=== PATIENT | female | born 1985 | race Caucasian/White ===

== ENCOUNTER 2018-05-01 06:15 | Inpatient (IN) | payer OTHER ==
[~2018-05-01 06:15] MED LIST: Buffered Lidocaine 0.9% SYRIN* 5 ML/SYR SYRINGE INTRADERM ONE; Famotidine IV* 10 MG/ML 2 ML (20 mg) IV ONE
[2018-05-01] MEDS ORDERED: fentaNYL* 50 MCG/ML 2 ML VIAL (100 MCG VIAL) ONE (07:36)
[2018-05-01] MEDS ORDERED: KETAMINE HCL* 50 MG/ML 10 ML VIAL ONE (07:36)
[2018-05-01] MEDS ORDERED: Midazolam* 1 MG/ML 5 ML VIAL (5 MG) ONE (07:37)
[2018-05-01] MEDS ORDERED: Morphine PF AMP (0.5MG/ML)* 5 MG/10 ML AMP ONE (07:37)
[2018-05-01] MEDS ORDERED: ceFAZolin 2 GM in NS PREMIX(*) 2 GM/100 ML BAG IVPB ONE (08:00)
[2018-05-01] MEDS ORDERED: oxyCODONE/Acetamin 5/325 MG* TAB PO PRN ×3 (09:00→09:53)
[2018-05-01] MEDS ORDERED: Naloxone* 2 MG in NS 0.9% 250 ML* 250 ML IV PRN (09:00)
[2018-05-01] MEDS ORDERED: Nalbuphine* 10 MG/ML 1 ML VIAL IV PRN (09:00)
[2018-05-01] MEDS ORDERED: DiMENhydriNATE IV* 50 MG/ML VIAL IV PUSH PRN (09:00)
[2018-05-01] MEDS ORDERED: Ondansetron INJ* 2 MG/ML VIAL IV PRN (09:00)
[2018-05-01] MEDS ORDERED: PROCHLORPERAZINE INJ 5 MG/ML 2 ML VIAL IV PRN (09:00)
[2018-05-01] MEDS ORDERED: diPHENhydraMINE IV* 50 MG/ML 1 ml VIAL (BENADRYL) IV PRN (09:00)
[2018-05-01] MEDS ORDERED: Naloxone* 0.4 MG/ML 1 ML VIAL IV PRN ×2 (09:00→09:03)
[2018-05-01] MEDS ORDERED: fentaNYL* 50 MCG/ML 2 ML VIAL (100 MCG VIAL) IV PRN (09:03)
[2018-05-01] MEDS ORDERED: Glycopyrrolate IV* 0.2 MG/ML 1 ML VIAL ONE (09:39)
[2018-05-01] MEDS ORDERED: Ondansetron INJ* 2 MG/ML VIAL ONE (09:39)
[2018-05-01] MEDS ORDERED: OXYTOCIN* 10 UNITS/ML 1 ML VIAL ONE (09:39)
[2018-05-01] MEDS ORDERED: EPHEDrine (Pressors)* 50 MG/ML VIAL ONE (09:39)
[2018-05-01] MEDS ORDERED: Phenylephrine INJ* 10 MG/ML 1 ML VIAL (10 MG) ONE (09:40)
[2018-05-01] MEDS ORDERED: Bupivacaine-MPF SPINAL* 7.5 MG/ML - 2ML AMP ONE (09:40)
[2018-05-01] MEDS ORDERED: Dibucaine 1% 28.35 GM TUBE PR PRN (09:53)
[2018-05-01] MEDS ORDERED: Witch Hazel PAD* JAR TOPICAL PRN (09:53)
[2018-05-01] MEDS ORDERED: Glycerin ADULT SUPP PR PRN (09:53)
[2018-05-01] MEDS ORDERED: Acetaminophen TAB* 325 MG PO PRN (09:53)
[2018-05-01] MEDS ORDERED: Zolpidem TAB* 5 MG PO PRN (09:53)
[2018-05-01] MEDS: Ibuprofen TAB* 600 MG PO PRN ×2 (12:10→18:11)
[2018-05-01] MEDS: Simethicone TAB* 80 MG TAB.CHEW PO SCH ×3 (12:10→20:35)
--- NOTE | 2018-05-01 12:31 | OP ---
OPERATIVE REPORT: DATE OF OPERATION: 05/01/18 DATE OF : 81 SURGEON: Mariangel Urbina MD GEOTHERMAL POWERPLANT SUPERVISOR: Dustin Cochran CNM PRE-OP DIAGNOSES: Intrauterine gestation of 41 weeks, prior section. POST-OP DIAGNOSES: Intrauterine gestation of 41 weeks, prior section. OPERATIVE PROCEDURE: Repeat lower transverse section. ESTIMATED BLOOD LOSS: 700 mL. FLUIDS: Crystalloid. FINDINGS: Normal-appearing uterus, ovaries and tubes, normal-appearing placenta , female infant, weight 9 pounds 3 ounces, Apgars of 8 and 9. DRAINS: Salas catheter with clear urine. COUNTS: All correct. DESCRIPTION OF PROCEDURE: After informed consent was signed, the patient was taken to the operating room where she was given spinal anesthesia; it was found to be adequate. She was prepped and draped in the dorsal spine position with leftward lift. A Pfannenstiel skin incision was made with a scalpel and carried down to the underlying layer of fascia with the scalpel. The fascia was incised on either side of the midline and the fascial incision extended laterally with the Hung scissors. The inferior edge of the fascial incision was grasped with Carlos clamps, tented up, and dissected down with sharp dissection with the Hung scissors. Then, the superior edge of the fascial incision was grasped with Carlos clamps, tented up, and dissected down with the Hung succors. The rectus muscles were in the midline and the peritoneum was entered bluntly. The peritoneal incision was extended with the Hung scissors. The bladder blade was inserted and a transverse incision was made in the lower uterine segment with the scalpel. The uterine incision was extended superiorly and inferiorly with blunt pressure. The infant's head then delivered with fundal pressure followed by the shoulders and the rest of the body. The cord was milked towards the baby and clamped x2 and cut. The baby was handed to the carpenter wooden tank erecting. Cord blood was collected. Placenta delivered with fundal massage and gentle cord traction. The uterus was cleared of clots and debris. The uterine incision was then closed with 0 Vicryl in a running locked fashion with a second layer of suture imbricating the first. The abdomen was irrigated. The incision was inspected again and good hemostasis was noted. The peritoneum was closed with 3-0 vicryl in a running unlocked fashion. The fascia was closed with 0 Vicryl in a running unlocked fashion. The subcuticular layer was irrigated and the skin was closed with 4-0 Monocryl in a running subcuticular fashion. Mastisol and Steri-Strips were placed on the incision. A dressing was placed. The patient was cleaned, moved to the stretcher, and taken to the recovery room in stable condition. [id number] #: [id number]
[2018-05-01] MEDS: Docusate CAP* 100 MG PO SCH ×2 (14:21→20:35)
[2018-05-01] MEDS: diPHENhydraMINE PO* 25 MG PO PRN (19:30)
[2018-05-02] MEDS: Ibuprofen TAB* 600 MG PO PRN ×3 (00:19→17:51)
[2018-05-02] MEDS: diPHENhydraMINE PO* 25 MG PO PRN (04:06)
[2018-05-02 07:11] LABS: ABS Basophils 0.1 10^3/ul (0-0.2); ABS Eosinophils 0 10^3/ul (0-0.6); ABS Lymphocytes 1.6 10^3/ul (1.0-4.8); ABS Monocytes 0.7 10^3/ul (0-0.8); ABS Neutrophils 6.8 10^3/ul (1.5-7.7); ABS Nucleated RBC 0 10^3/ul; Eosinophil % 0.4 % (0-6); Hematocrit 28 % (35-47); Hemoglobin 9.6 g/dl (12.0-16.0); Lymphocyte % 17.2 % (25-47); Mean Corpuscular HGB Conc 35 g/dl (31-36); Mean Corpuscular Hemoglobin 29 pg (27-31); Mean Corpuscular Volume 85 fL (80-97); Mean Platelet Volume 8.7 um3 (7.4-10.4); Nucleated Red Blood Cells % 0; Platelet Count 130 10^3/ul (150-450); Red Blood Count 3.28 10^6/ul (4.00-5.40); Red Cell Distribution Width 16 % (10.5-15); White Blood Count 9.2 10^3/ul (3.5-10.8)
[2018-05-02] MEDS: Simethicone TAB* 80 MG TAB.CHEW PO SCH ×4 (08:58→21:01)
[2018-05-02] MEDS: Docusate CAP* 100 MG PO SCH ×3 (08:58→20:59)
[2018-05-02] MEDS: Ferrous Gluconate TAB* 324 MG TAB PO SCH ×2 (08:58→20:55)
[2018-05-03] MEDS: Ibuprofen TAB* 600 MG PO PRN ×2 (04:21→11:26)
[2018-05-03 09:12] VITALS: BP 121/85
[2018-05-03] MEDS: Ferrous Gluconate TAB* 324 MG TAB PO SCH (11:25)
[2018-05-03] MEDS: Docusate CAP* 100 MG PO SCH (11:26)
[2018-05-04] MEDS ORDERED: Scopolamine PATCH Remove* 1 NOTE MISC PATCH OFF PRN (09:02)
== END 2018-05-03 13:56 | disposition home or self-care (01) | DRG 540 ==
LOC: MCHOB 06:15
PROVIDERS: ADMIT Obstetrics & Gynecology; ATTEND Obstetrics & Gynecology
PROC: 10D00Z1 Extraction of Products of Conception, Low, Open Approach (ICD-10-PCS; principal; 2018-05-01 07:45)
DX: O34.211 Maternal care for low transverse scar from previous cesarean delivery (principal); O48.0 Post-term pregnancy; O99.824 Streptococcus B carrier state complicating childbirth; Z3A.41 41 weeks gestation of pregnancy; Z37.0 Single live birth
CPT/HCPCS: 36415; 85025; A9270-GY; J0690; J2250; J2405; J2590; J3010